=== PATIENT | female | born 1995 | race Two or more races ===

== ENCOUNTER 2017-03-02 09:09 | Emergency (ER) | payer SELFPAY ==
[~2017-03-02 09:09] MED LIST: FLEXERIL10 MG PO; NO MEDICATIONS; VOLTAREN75 MG PO
[2017-03-02 10:23] LABS: URINE APPEARANCE SL CLOUDY; URINE BILIRUBIN NEG (NEG); URINE BLOOD 3+ (NEG); URINE COLOR YELLOW; URINE GLUCOSE NEG (NORM); URINE KETONE NEG (NEG); URINE LEUKOCYTE ESTERASE 3+ (NEG); URINE NITRATE POS (NEG); URINE PROTEIN 2+ (NEG); URINE UROBILINOGEN 0.2 MG/DL (NORM)
[2017-03-02 10:31] LABS: MICRO INDICATED? YES; URINE SOURCE CATH
[2017-03-02 10:33] LABS: URINE RBC 50-100 /[HPF] (0-2); URINE WBC INNUM /[HPF] (0-5)
[2017-03-02 10:34] LABS: CULTURE INDICATED? YES; URINE BACTERIA 2+ (NEG); URINE SQUAMOUS EPITHELIAL CELL OCCAS /[HPF]; URINE TRANSITIONAL EPI CELLS OCCAS /[HPF]
[2017-03-03 23:07] LABS: CHLAMYDIA TRACH Not Detected (Not Detected); N GONOR Not Detected (Not Detected)
== END 2017-03-02 12:09 | disposition home or self-care (01) ==
LOC: SED 09:09
PROVIDERS: Emergency Medicine
DX: N73.9 Female pelvic inflammatory disease, unspecified (principal); N39.0 Urinary tract infection, site not specified; F17.210 Nicotine dependence, cigarettes, uncomplicated; Z90.89 Acquired absence of other organs
CPT/HCPCS: 81003; 84703; 87086; 87088; 87186; 87210; 87491; 87591; 87808; 87905; 96372; 99284; J0696